=== PATIENT | male | born 1985 | race Caucasian/White ===

== ENCOUNTER 2019-03-11 12:13 | Emergency (ER) | payer OTHER ==
[2019-03-11 12:36] VITALS: TEMP 97.7; O2SAT 98
--- NOTE | 2019-03-11 12:36 | ED.PDOC ---
History of Present Illness - General Chief Complaint: Trauma Stated Complaint: right hand injury Time Seen by Provider: 03/11/19 12:32 Source: patient - History of Present Illness Initial Comments: 33 yo male who presents with cc of right hand pain following injury at work 2 days ago. Reports right lateral hand near base of thumb was crushed by a a heavy pipe being lowered down on the job site - hand was caught between the pipe and hard ground briefly before relief. Reports constant throbbing 4/10 pain to lateral base of right thumb but radiates up the lateral forearm nearly to the elbow, worse with any palpation of thumb base and with even slight movement of 1st MCP joint in all directions. Reports mild swelling and slight tingling in right thumb. Denies any weakness. Nothing taken for pain. Unsure of date of last tetanus imm. Small superficial healed lac with injury. Denies any redness or warmth. Allergies/Adverse Reactions: Allergies NO KNOWN ALLERGY Allergy (Verified 03/11/19 12:35) Home Medications: Ambulatory Orders NK 03/11/19 Review of Systems - Review of Systems Review of Systems: 03/11/19 12:36 as per HPI All other Systems: Reviewed and Negative Family Medical History - Family History Mother Family History: Unknown Physical Exam - Physical Exam General Appearance: Alert, No apparent distress Eye Exam: bilateral normal Ears, Nose, Throat: hearing grossly normal, normal ENT inspection Neck: non-tender, full range of motion, supple Respiratory: lungs clear, normal breath sounds, no respiratory distress Cardiovascular/Chest: normal peripheral pulses, regular rate, rhythm, no edema, no murmur Peripheral Pulses: radial,right: 2+, radial,left: 2+ Gastrointestinal/Abdominal: non tender, soft Back Exam: normal inspection, no CVA tenderness Extremity: other - Right thumb with mild swelling at MCP joint without deformity/redness/warmth. Moderate ttp at MCP joint of thumb and along lateral aspect of right forearm without noted swelling or deformity. Right thumb ROM markedly limited due to pain. Reports min dec sens to light touch to right thumb compared to left, strength intact, good cap refill throughout Neurologic: hand outside cutter II-XII nml as tested, alert, normal mood/affect, oriented x 3 Skin Exam: normal color, warm/dry Progress - Progress Progress: 03/11/19 12:39 Right UE injury -consider thumb frx, hand frx, wrist frx, forearm frx -obtain XR R hand and forearm -update tetanus imm 03/11/19 13:30 -XR no acute fractures per my read. -discussed dx of hand contusion and trx plan -dc home in good condition, f/u closely with PCP Abram Peck MD Billing #[id number] Departure - Departure Clinical Impression: Contusion of hand, right Time of Disposition: 13:45 Disposition: Discharge to Home or Self Care Condition: Good Departure Forms: ED Discharge - Pt. Copy, ED Discharge - Work Release, Patient Portal Self Enrollment Instructions: Contusion (DC) Activity: increase activity as tolerated Referrals: Angel Liu MD [Primary Care Provider] - 1-2 Weeks Home Medications: Ambulatory Orders NK 03/11/19 Additional Instructions: Continue OTC ibuprofen & Tylenol as well as frequent cold pack application to Right hand for control of pain & swelling. Follow up with your primary care doctor in 5-7 days is recommended for repeat evaluation.
[2019-03-11] MEDS: TETANUS,DIPHTHERIA,PERTUSSIS 1 EA SYG IM ONE (12:45)
--- NOTE | 2019-03-11 13:13 | RAD ---
EXAM DESCRIPTION: Forearm,Right CLINICAL HISTORY: 33 years Male, crush injury right lateral hand 2 days ago COMPARISON: None. FINDINGS: 2 views of the right forearm show no acute fracture or malalignment. No radiopaque foreign body or soft tissue gas. Degenerative changes at the distal radial ulnar joint. Small calcification adjacent to the distal ulna seen only on the lateral view, not acute. This may be related to remote trauma. IMPRESSION: Degenerative changes without acute right forearm abnormality. Electronically signed by: Gee Wright MD 03/11/2019 1:11 PM [facility]
--- NOTE | 2019-03-11 13:18 | RAD ---
EXAM DESCRIPTION: Hand,Right 3 Views CLINICAL HISTORY: 33 years Male, crush injury right lateral hand 2 days ago COMPARISON: None. FINDINGS: 3 views of the right hand show no acute fracture or malalignment. This a small nonacute calcification adjacent to the distal ulna which may be related to remote trauma. No radiopaque foreign body or soft tissue gas. IMPRESSION: No acute findings. Electronically signed by: Gee Wright MD 03/11/2019 1:16 PM [facility]
[2019-03-11 14:02] VITALS: BP 119/80
== END 2019-03-11 14:02 | disposition home or self-care (01) ==
LOC: ER 12:13
DX: S60.221A Contusion of right hand, initial encounter (principal); W22.8XXA Striking against or struck by other objects, initial encounter; Y99.0 Civilian activity done for income or pay; Y92.69 Other specified industrial and construction area as the place of occurrence of the external cause; Z23 Encounter for immunization